=== PATIENT | female | born 1985 | race Caucasian/White ===

== ENCOUNTER 2019-12-20 18:48 | Inpatient (IN) | payer MEDICAID, SELFPAY ==
[~2019-12-20] VITALS: Ht 165.1 cm; Wt 83.6 kg
--- NOTE | 2019-12-20 19:10 | NUR ---
PT TO ED WITH ABDOMINAL CRAMPING, REPORTS CURRENT GESTATION UNKNOWN. PT 1 PARA 0. HAS BILATERAL LATERAL HIP ULCERS, DENIES SKIN POPPING AT THESE LOCATIONS. REPORTS SKIN POPPING ALONG ARMS. ARMS HAVE WOUNDS IN VARIOUS STAGES OF HEALING, SCABBING NOTED ACROSS BILATERAL ARMS AND LEGS. PT REPORTS LAST DRUG USE X3 DAYS AGO WITH HEROIN AND "KROCODIL" (CODEINE DERIVATIVE). PT PLACED ON ALL MONITORING, CALL LIGHT WITHIN REACH, ALL SAFETY MEASURES IN PLACE. FAMILY AT BS FOR SUPPORT.
[2019-12-20] MEDS ORDERED: SODIUM CHLORIDE FLUSH 10ML SYR IVF ONE ×2 (19:30→20:00)
[2019-12-20] MEDS ORDERED: CEFEPIME 2 GM in DEXTROSE 5% 100 ML IV ONE (20:00)
[2019-12-20] MEDS ORDERED: VANCOMYCIN PER PHARMACY MC ONE (20:00)
[2019-12-20] MEDS ORDERED: SODIUM CHLORIDE 0.9% 1,000ML IVBOLUS ONE (20:00)
[2019-12-20] MEDS ORDERED: VANCOMYCIN 1,600 MG in SODIUM CHLORIDE 0.9% 250 ML IV ONE (20:00)
[2019-12-20 20:15] LABS: ALANINE AMINOTRANSFERASE 28 U/L (12-78); ALBUMIN 2.1 g/dL (3.4-5.0); ANION GAP 6 mmol/L (5-15); CALCIUM 8.2 mg/dL (8.5-10.1); CHLORIDE 110 mmol/L (98-107); CREATININE 0.69 mg/dL (0.55-1.02)
[2019-12-20 20:16] LABS: AMPHETAMINE SCREEN, URINE Positive (Negative); BARBITURATE SCREEN, URINE Negative (Negative); BENZODIAZEPINE SCREEN, URINE Negative (Negative); CANNABINOID SCREEN, URINE Negative (Negative); COCAINE SCREEN, URINE Negative (Negative); METHADONE SCREEN, URINE Negative (Negative); OPIATE SCREEN, URINE Positive (Negative)
[2019-12-20 20:23] LABS: MICROSCOPIC INDICATED
[2019-12-20 20:24] LABS: MEAN CORPUSCULAR HEMOGLOBIN 28.6 pg (27.0-34.8); MEAN CORPUSCULAR HGB CONC 32.4 g/dL (32.4-35.8); MEAN PLATELET VOLUME 11.3 fL (7.4-10.4); PLATELET COUNT 261 x10^3/uL (130-400); RED BLOOD COUNT 3.78 x10^6/uL (3.82-5.3); RED CELL DISTRIBUTION WIDTH 13.5 % (9.6-15.2)
[2019-12-20 20:32] LABS: ALKALINE PHOSPHATASE 241 U/L (45-117); BILIRUBIN,TOTAL 0.4 mg/dL (0.2-1.0)
--- NOTE | 2019-12-20 20:48 | NUR ---
US IN ROOM AT THIS TIME.
[2019-12-20 20:53] LABS: MD YES
[2019-12-20 21:01] LABS: BAND#(MANUAL) 3.08 x10^3/uL; BANDS%(MANUAL) 20 % (0-7); LYMPH#(MANUAL) 0.31 x10^3/uL (1-3.4); LYMPHS% (MANUAL) 2 % (22-44); MONOS#(MANUAL) 0.62 x10^3/uL (0.3-2.7); MONOS% (MANUAL) 4 % (2-9); SEGS% (MANUAL) 74 % (42-75)
[2019-12-20 21:02] LABS: <PLATELET ESTIMATE> ADEQUATE; ANISOCYTOSIS 1+; LARGE PLATELETS 1+; POLYCHROMASIA 1+
[2019-12-20] MEDS ORDERED: VANCOMYCIN PER PHARMACY MC PRN (22:30)
[2019-12-20] MEDS ORDERED: LABETALOL 5MG/ML, 20ML IVPush PRN (22:30)
[2019-12-20 22:39] VITALS: BP 160/108
[2019-12-20] MEDS: OXYcodone/APAP 5/325MG TABLET PO PRN (22:44)
[2019-12-20 23:28] VITALS: BP 154/108
[2019-12-20] MEDS ORDERED: PHARMACOKINETIC MONITORING MC PRN (23:30)
[2019-12-20] MEDS: LABETALOL 5MG/ML, 20ML IVPush PRN ×2 (23:36→23:50)
[2019-12-20 23:48] VITALS: BP 166/110
[2019-12-21] VITALS (8 sets, daily range): BP systolic 126–169; BP diastolic 75–115
[2019-12-21] MEDS: ACETAMINOPHEN 325 MG TABLET PO PRN ×3 (00:16→16:17)
[2019-12-21] MEDS: PIPERACILLIN/TAZO/PMX 3.375GM 50 ML IV SCH ×4 (00:59→18:35)
[2019-12-21] MEDS: OXYcodone/APAP 5/325MG TABLET PO PRN ×3 (03:05→13:07)
[2019-12-21 06:23] LABS: ALBUMIN 1.8 g/dL (3.4-5.0); ANION GAP 5 mmol/L (5-15); CALCIUM 8.3 mg/dL (8.5-10.1); CHLORIDE 113 mmol/L (98-107)
[2019-12-21 06:26] LABS: ALANINE AMINOTRANSFERASE 24 U/L (12-78); ALKALINE PHOSPHATASE 212 U/L (45-117); BILIRUBIN,TOTAL 0.4 mg/dL (0.2-1.0); TOTAL PROTEIN 6.2 g/dL (6.4-8.2)
[2019-12-21 06:39] LABS: BASOPHILS % (AUTO) 0 % (0-1); EOSINOPHILS % (AUTO) 1 % (1-7); LYMPHOCYTES % (AUTO) 12 % (22-44); MEAN CORPUSCULAR HEMOGLOBIN 29.8 pg (27.0-34.8); MEAN CORPUSCULAR HGB CONC 33.1 g/dL (32.4-35.8); MEAN PLATELET VOLUME 11.1 fL (7.4-10.4); MONOCYTES % (AUTO) 7 % (2-9); NEUTROPHILS % (AUTO) 80 % (42-75); PLATELET COUNT 210 x10^3/uL (130-400); RED BLOOD COUNT 3.53 x10^6/uL (3.82-5.3); RED CELL DISTRIBUTION WIDTH 13.4 % (9.6-15.2)
[2019-12-21 06:48] LABS: MD NO
[2019-12-21] MEDS: PRENATAL VIT/IRON/FA 1 EACH TABLET PO SCH (08:59)
[2019-12-21] MEDS ORDERED: VANCOMYCIN 1,300 MG in SODIUM CHLORIDE 0.9% 250 ML IV SCH (10:00)
[2019-12-21] MEDS: LABETALOL 5MG/ML, 20ML IVPush PRN (16:06)
[2019-12-21] MEDS: DIPHENHYDRAMINE 25 MG CAPSULE PO PRN (20:00)
[2019-12-21] MEDS: LABETALOL 200 MG TABLET PO SCH (20:01)
[2019-12-21] MEDS: OXYcodone IR 5MG TABLET PO PRN (20:15)
[2019-12-21] MEDS: VANCOMYCIN 1,600 MG in SODIUM CHLORIDE 0.9% 250 ML IV SCH (20:17)
[2019-12-22] MEDS: OXYcodone IR 5MG TABLET PO PRN ×3 (01:31→10:27)
[2019-12-22] MEDS: PIPERACILLIN/TAZO/PMX 3.375GM 50 ML IV SCH ×2 (01:33→06:33)
[2019-12-22 02:07] VITALS: BP 153/87
[2019-12-22 06:04] LABS: BASOPHILS % (AUTO) 1 % (0-1); EOSINOPHILS % (AUTO) 0 % (1-7); LYMPHOCYTES % (AUTO) 14 % (22-44); MEAN CORPUSCULAR HEMOGLOBIN 29.6 pg (27.0-34.8); MEAN CORPUSCULAR HGB CONC 33.1 g/dL (32.4-35.8); MEAN PLATELET VOLUME 11.1 fL (7.4-10.4); MONOCYTES % (AUTO) 8 % (2-9); NEUTROPHILS % (AUTO) 77 % (42-75); PLATELET COUNT 212 x10^3/uL (130-400); RED BLOOD COUNT 3.27 x10^6/uL (3.82-5.3); RED CELL DISTRIBUTION WIDTH 13.6 % (9.6-15.2)
[2019-12-22 06:10] LABS: ALANINE AMINOTRANSFERASE 21 U/L (12-78); ALBUMIN 1.8 g/dL (3.4-5.0); ANION GAP 6 mmol/L (5-15); CALCIUM 8.1 mg/dL (8.5-10.1); CHLORIDE 114 mmol/L (98-107); CREATININE 0.66 mg/dL (0.55-1.02)
[2019-12-22 06:13] LABS: ALKALINE PHOSPHATASE 186 U/L (45-117); BILIRUBIN,TOTAL 0.4 mg/dL (0.2-1.0); TOTAL PROTEIN 6.1 g/dL (6.4-8.2)
[2019-12-22 06:27] LABS: MD NO
[2019-12-22 09:14] VITALS: BP 149/95
[2019-12-22] MEDS: VANCOMYCIN 1,600 MG in SODIUM CHLORIDE 0.9% 250 ML IV SCH ×2 (09:21→21:22)
[2019-12-22] MEDS: PRENATAL VIT/IRON/FA 1 EACH TABLET PO SCH (09:21)
[2019-12-22] MEDS: LABETALOL 200 MG TABLET PO SCH ×2 (09:21→21:24)
[2019-12-22] MEDS: BUPRENORPHINE/NALOXONE 2-0.5MG SL SCH (12:11)
[2019-12-22] MEDS: CEFAZOLIN PMX 1GM/50ML 50 ML IV SCH ×2 (14:26→23:40)
[2019-12-22] MEDS: IRON SUCROSE COMPLEX 100MG/5ML IV SCH (14:26)
[2019-12-22 14:41] VITALS: BP 152/89
[2019-12-22] MEDS: ACETAMINOPHEN 325 MG TABLET PO PRN ×2 (17:30→21:32)
[2019-12-22 20:31] VITALS: BP 154/99
[2019-12-22 21:23] VITALS: BP 153/89
[2019-12-22] MEDS: DIPHENHYDRAMINE 25 MG CAPSULE PO PRN (21:24)
[2019-12-22 22:59] VITALS: BP 142/81
[2019-12-23] MEDS: VANCOMYCIN 1,600 MG in SODIUM CHLORIDE 0.9% 250 ML IV SCH ×2 (00:26→12:13)
[2019-12-23 01:27] VITALS: BP 126/83
[2019-12-23] MEDS: CEFAZOLIN PMX 1GM/50ML 50 ML IV SCH ×3 (07:41→23:09)
[2019-12-23] MEDS: PRENATAL VIT/IRON/FA 1 EACH TABLET PO SCH (07:42)
[2019-12-23] MEDS: LABETALOL 200 MG TABLET PO SCH ×2 (07:42→21:07)
[2019-12-23] MEDS: IRON SUCROSE COMPLEX 100MG/5ML IV SCH (07:42)
[2019-12-23 08:08] VITALS: BP 149/102
[2019-12-23 08:29] LABS: BASOPHILS % (AUTO) 0 % (0-1); EOSINOPHILS % (AUTO) 1 % (1-7); LYMPHOCYTES % (AUTO) 16 % (22-44); MEAN CORPUSCULAR HEMOGLOBIN 29.8 pg (27.0-34.8); MEAN CORPUSCULAR HGB CONC 33.1 g/dL (32.4-35.8); MEAN PLATELET VOLUME 11.5 fL (7.4-10.4); MONOCYTES % (AUTO) 6 % (2-9); NEUTROPHILS % (AUTO) 77 % (42-75); PLATELET COUNT 215 x10^3/uL (130-400); RED BLOOD COUNT 3.41 x10^6/uL (3.82-5.3); RED CELL DISTRIBUTION WIDTH 13.4 % (9.6-15.2)
[2019-12-23 08:34] LABS: MD NO
[2019-12-23 08:40] LABS: ALBUMIN 1.8 g/dL (3.4-5.0); ANION GAP 5 mmol/L (5-15); CHLORIDE 113 mmol/L (98-107); CREATININE 0.61 mg/dL (0.55-1.02)
[2019-12-23 08:43] LABS: ALANINE AMINOTRANSFERASE 27 U/L (12-78); ALKALINE PHOSPHATASE 227 U/L (45-117); BILIRUBIN,TOTAL 0.3 mg/dL (0.2-1.0); TOTAL PROTEIN 6.2 g/dL (6.4-8.2)
[2019-12-23] MEDS: BUPRENORPHINE/NALOXONE 2-0.5MG SL SCH (09:55)
[2019-12-23 14:01] VITALS: BP 132/90
[2019-12-23 19:59] VITALS: BP 145/97
[2019-12-23] MEDS: ACETAMINOPHEN 325 MG TABLET PO PRN (21:07)
[2019-12-23] MEDS: DIPHENHYDRAMINE 25 MG CAPSULE PO PRN (21:07)
[2019-12-23] MEDS: DIPHENHYDRAMINE/ZINC CRM 2%, 30GM TP PRN (21:07)
[2019-12-24] MEDS: VANCOMYCIN 1,600 MG in SODIUM CHLORIDE 0.9% 250 ML IV SCH ×2 (00:19→12:00)
[2019-12-24 01:01] VITALS: BP 132/87
[2019-12-24] MEDS ORDERED: ASPIRIN 81 MG TABLET EC PO SCH (06:00)
[2019-12-24] MEDS: CEFAZOLIN PMX 1GM/50ML 50 ML IV SCH (06:37)
[2019-12-24 08:26] VITALS: BP 156/104
[2019-12-24] MEDS: LABETALOL 200 MG TABLET PO SCH (09:16)
[2019-12-24] MEDS: PRENATAL VIT/IRON/FA 1 EACH TABLET PO SCH (09:16)
[2019-12-24] MEDS: BUPRENORPHINE/NALOXONE 2-0.5MG SL SCH (09:16)
[2019-12-24] MEDS: ACETAMINOPHEN 325 MG TABLET PO PRN (09:30)
[2019-12-24] MEDS ORDERED: BUPR1TAB44 SL (12:14)
[2019-12-24] MEDS ORDERED: Prenatal Vit/Iron/Fa PO (12:14)
[2019-12-24] MEDS ORDERED: ASPI81TA45 PO (12:14)
[2019-12-24] MEDS ORDERED: LABE200T6 PO (12:14)
[2019-12-24] MEDS ORDERED: FERR-51 PO (12:14)
[2019-12-24] MEDS ORDERED: CEPH-376 PO (12:14)
[2019-12-24] MEDS ORDERED: CLIN150C14 PO (12:14)
[2019-12-24 12:38] VITALS: BP 156/100
[2019-12-24] MEDS: DIPHENHYDRAMINE/ZINC CRM 2%, 30GM TP PRN (13:34)
[2019-12-27] MEDS ORDERED: FERROUS SULFATE 325 MG TABLET PO SCH (09:00)
== END 2019-12-24 15:29 | disposition home or self-care (01) | DRG 831 ==
LOC: ED 21:19 → EDIP 21:37 → 3N 22:28
PROVIDERS: ADMIT Family Medicine; ATTEND Family Medicine
DX: O98.813 Other maternal infectious and parasitic diseases complicating pregnancy, third trimester (principal); A41.9 Sepsis, unspecified organism; E43 Unspecified severe protein-calorie malnutrition; F11.23 Opioid dependence with withdrawal; L02.414 Cutaneous abscess of left upper limb; L02.415 Cutaneous abscess of right lower limb; L02.416 Cutaneous abscess of left lower limb; L03.115 Cellulitis of right lower limb; L03.116 Cellulitis of left lower limb; O12.13 Gestational proteinuria, third trimester; O10.913 Unspecified pre-existing hypertension complicating pregnancy, third trimester; O23.43 Unspecified infection of urinary tract in pregnancy, third trimester; O41.03X0 Oligohydramnios, third trimester, not applicable or unspecified; O99.323 Drug use complicating pregnancy, third trimester; O99.013 Anemia complicating pregnancy, third trimester; D50.9 Iron deficiency anemia, unspecified; B96.20 Unspecified Escherichia coli [E. coli] as the cause of diseases classified elsewhere; F32.9 Major depressive disorder, single episode, unspecified; B95.62 Methicillin resistant Staphylococcus aureus infection as the cause of diseases classified elsewhere; B19.20 Unspecified viral hepatitis C without hepatic coma; O98.413 Viral hepatitis complicating pregnancy, third trimester; I08.1 Rheumatic disorders of both mitral and tricuspid valves; O25.13 Malnutrition in pregnancy, third trimester; O99.333 Smoking (tobacco) complicating pregnancy, third trimester; O99.713 Diseases of the skin and subcutaneous tissue complicating pregnancy, third trimester; F17.210 Nicotine dependence, cigarettes, uncomplicated; Z20.828 Contact with and (suspected) exposure to other viral communicable diseases; Z86.79 Personal history of other diseases of the circulatory system; Z3A.30 30 weeks gestation of pregnancy; Z90.49 Acquired absence of other specified parts of digestive tract; Z95.0 Presence of cardiac pacemaker; Z95.2 Presence of prosthetic heart valve
CPT/HCPCS: 36415; 87806; 96365; 99285; J0572; 76805; 76815; 76857; 80053; 80202; 80307; 81001; 82570; 82728; 83540; 83550; 83605; 83615; 84112; 84156; 84466; 84550; 84702; 85025; 86480; 86592; 86762; 86803; 86850; 86900; 87040; 87070; 87077; 87086; 87147; 87186; 87205; 87340; 87521; 87635; 93005; 93306; G0378; J0690; J1756; J2543; J3370; G0475; J7030; J7050; Q0163